=== PATIENT | female | born 1980 | race Caucasian/White ===

== ENCOUNTER → 2024-05-31 07:12 | Outpatient (REF) | payer OTHER, SELFPAY | LOC: HWRAD 07:12 | PROVIDERS: ATTENDING PHYSICIAN Internal Medicine Gastroenterology; FAMILY PHYSICIAN Nurse Practitioner Family | DX: R19.8 Other specified symptoms and signs involving the digestive system and abdomen (principal) | CPT/HCPCS: 74019 ==

== ENCOUNTER 2024-08-08 17:50 | Emergency (ER) | payer BC, SELFPAY ==
[2024-08-08 17:52] VITALS: BP 143/86
[2024-08-08 18:19] LABS: % Basophils 0.8 % (0-2); % Eosinophils 1.8 % (0-6); % Immature Granulocytes 0.3 % (0-0.5); % Lymphocytes 31.4 % (20.5-51.1); % Monocytes 6.9 % (1.7-9.3); % Neutrophils 58.8 % (42.2-75.2); Absolute Basophils 0.1 10^3/uL (0-0.2); Absolute Eosinophils 0.2 10^3/uL (0-0.7); Absolute Lymphocytes 3.1 10^3/uL (1.2-3.4); Absolute Monocytes 0.7 10^3/uL (0.1-0.6); Absolute Neutrophils 5.9 10^3/uL (1.4-6.5); Hematocrit 39.1 % (37.0-47.0); Hemoglobin 13.1 g/dL (12.0-16.0); Mean Corp Hgb Conc. 33.5 g/dL (33.0-37.0); Mean Corpuscular Volume 89.7 fL (81.0-99.0); Nucleated Red Blood Cells % 0 %; Platelet Count 328 10^3/uL (130-400); Red Blood Cell Count 4.36 10^6/uL (4.20-5.40); Red Cell Dist. Width 12.2 % (11.5-14.5)
[2024-08-08 18:30] LABS: INR 1.02; PT 13.7 Sec (11.4-14.6)
[2024-08-08 18:38] LABS: ALT (SGPT) 20 U/L (0-35); AST (SGOT) 29 U/L (14-36); Albumin 4.1 g/dl (3.5-5.0); Alkaline Phosphatase 64 U/L (38-126); Blood Urea Nitrogen 21 mg/dl (7-17); Calcium 9.3 mg/dl (8.4-10.2); Carbon Dioxide 26 mmol/L (22-30); Chloride 103 mmol/L (98-107); Glucose 102 mg/dl (70-99); Potassium 3.9 mmol/L (3.5-5.1); Sodium 137 mmol/L (135-145); Total Bilirubin 0.5 mg/dl (0.2-1.3); Total Protein 7.4 g/dl (6.3-8.2); eGFR > 60.00
[2024-08-08 18:43] VITALS: BP 135/81
[2024-08-08 18:49] LABS: Troponin I < 0.012 ng/ml
[2024-08-08 19:00] VITALS: BP 126/83
[2024-08-08 19:28] VITALS: BMI 33.5
--- NOTE | 2024-08-08 19:49 | ED.GENMED ---
History of Present Illness
General
Chief Complaint: Cardiac Symptoms
Source: patient
Exam Limitations: none
Time Seen by Provider: 08/08/24 19:21
History of Present Illness
History of Present Illness:
44-year-old otherwise healthy female presents with intermittent fluttering sensation since 3 days ago. It increased in frequency today. She denies any chest pain. She denies any significant shortness of breath. She describes it as a skipped
beat. She drinks 2 cups of coffee a day. Rarely has an alcoholic beverage. She denies any more stress than usual. No known history of thyroid disorder. No recent travel or surgery. She denies leg swelling or calf pain. No other complaints at
this time
Phy Exam
Physical Exam
Physical Exam:
General: Well-appearing female no acute respiratory distress HEENT: Normocephalic atraumatic
Heart: Regular rate and rhythm no murmurs
Lungs: Clear no wheeze
Extremities: No cyanosis or edema
Skin: No rash.
Course
Orders/Labs/Results
Orders:
Orders
08/08/24 17:51
EKG [Electrocardiogram (*1)] Urgent
Reason for Study: Palpitations
CR Chest - 2 Views Urgent
Comment:
Reason For Exam: chest pain
08/08/24 17:52
EKG- Treatment ONCE
08/08/24 18:08
Complete Blood Count/With Diff Urgent
Comprehensive Metabolic Panel Urgent
Free T4 Urgent
Prothrombin Time Urgent
TSH Reflex To Free T4 Urgent
Comment: ADD ON
Troponin I Urgent
08/08/24 19:41
Add On- LAB Urgent
Tests Added?: tsh reflex to t4
Abnormal Lab Results
08/08/24
18:08
Absolute Monos (auto) 0.7 H 10^3/uL
(0.1-0.6)
BUN 21 H mg/dl
(7-17)
Glucose 102 H mg/dl
(70-99)
TSH (Reflex) 8.20 H uIU/ml
(0.47-4.68)
08/08/24 18:08
08/08/24 18:08
Vital Signs
Initial and Last Documented VS:
Initial Vital Signs
Temp Pulse Resp BP Pulse Ox
98.2 F 75 16 143/86 99
08/08/24 17:52 08/08/24 17:52 08/08/24 17:52 08/08/24 17:52 08/08/24 17:52
Last Documented Vital Signs
Temp Pulse Resp BP Pulse Ox
99.0 F 69 16 114/61 99
08/08/24 19:30 08/08/24 20:00 08/08/24 22:10 08/08/24 22:08 08/08/24 22:10
MDM/Problems Addressed
Differential Diagnosis Includes:
Patient with palpitations. No chest pain no shortness of breath. Vital signs are stable. EKG shows sinus rhythm however on pvc monitor she has intermittent PVCs. I suspect the PVCs are potentially what she is feeling. Will check for
electrolyte abnormality or thyroid disorder. Keep patient on monitor. Do not suspect ACS PE or dissection
*Critical Care Note
Total Time (30-74mins, 75-104mins- exclusive of procedures): Not Applicable
Update Note
Update Note:
Workup here shows elevated TSH however free T4 is normal. Chest x-ray is clear. PVCs noted on monitor no indication for admission. Do not suspect ACS. Recommend follow-up with family doctor. Stable for discharge
ED Attending Note
-
Portions of this chart may have been created with voice recognition software.� Occasional wrong word or��sound alike� substitutions may have occurred due to the inherent limitations of voice recognition software.
Discharge Plan
Departure
Patient Disposition: Home (Routine Discharge)
Date of Disposition: 08/08/24
Time of Disposition: 22:14
Patient with high blood pressure during this ER visit?: No
Discharge Problem:
Palpitations
Instructions: Palpitations ED
Prescriptions:
No Action
norgestimate-ethinyl estradiol [Ortho-Cyclen (28)] 0.25-35 mg-mcg Tablet
1 tab PO DAILY
Referrals:
Peter Olivas CRNP [Family Provider] -
Activity Restrictions/Additional Instructions:
Stay hydrated. Try to limit caffeine. Return here for worsening symptoms otherwise follow-up with your doctor
Interventions
Interventions:
*Risk Screen - Suicide Last Done: 08/08/24 17:52
*General Assessment Last Done: 08/08/24 17:52
*Neglect/Abuse Screening Last Done: 08/08/24 17:52
ED- Fall Risk Assessment Last Done: 08/08/24 19:36
*ED COVID-19 Vaccine History Last Done: 08/08/24 17:52
ED- Pulmonary Assessment Last Done: 08/08/24 19:36
ED- Cardiac Assessment Last Done: 08/08/24 19:36
Discharge Date and Time
Print Language: HEBREW
[2024-08-08 20:00] VITALS: BP 123/56
[2024-08-08 20:52] VITALS: BP 120/82
[2024-08-08 21:30] LABS: Free T4 0.95 ng/dl (0.78-2.19)
[2024-08-08 22:08] VITALS: BP 114/61
== END 2024-08-08 22:22 | disposition home or self-care (01) ==
LOC: EMR 17:50
PROVIDERS: Emergency Medicine; EMERGENCY PHYSICIAN Emergency Medicine; FAMILY PHYSICIAN Nurse Practitioner Family
DX: R00.2 Palpitations (principal); I49.3 Ventricular premature depolarization
CPT/HCPCS: 99284; 71046; 80053; 84439; 84443; 84484; 85025; 85610; 93005